=== PATIENT | male | born 1960 | race Caucasian/White ===

== ENCOUNTER → 2017-08-25 | Outpatient (CLI) | payer OTHER ==
[~2017-08-25] MED LIST: CEPH500C PO; IBUP-1050 PO
[2017-08-25 13:13] LABS: ALT/SGPT 31 U/L (12-78); BLOOD UREA NITROGEN 13 mg/dl (7-18); CARBON DIOXIDE 28 mmol/L (21-32); CHLORIDE 108 mmol/L (98-107); CHOLESTEROL 215 mg/dl (0-200); CHOLESTEROL/HDL RATIO 3.8; CREATININE 0.92 mg/dl (0.60-1.40); GLUCOSE 96 mg/dl (70-99); HDL CHOLESTEROL 57 mg/dl; POTASSIUM 4.5 mmol/L (3.5-5.1); SODIUM 140 mmol/L (136-145)
[2017-08-25 13:18] LABS: ALB/GLOB RATIO 1.2 (0.9-2); ALKALINE PHOSPHATASE 81 U/L (45-117); AST/SGOT 19 U/L (15-37); LDL CHOLESTEROL CALCULATED 143 mg/dl; TRIGLYCERIDES 74 mg/dl (0-150); VERY LOW DENSITY LIPOPROT CALC 15 mg/dl
== END | disposition home or self-care (01) ==
LOC: C.LABPBG 07:23
PROVIDERS: ATTEND Neuromusculoskeletal Medicine & OMM
DX: Z00.00 Encounter for general adult medical examination without abnormal findings (principal); Z80.42 Family history of malignant neoplasm of prostate